=== PATIENT | female | born 1955 | race Caucasian/White ===

== ENCOUNTER 2017-11-02 17:47 | Emergency (ER) | payer OTHER ==
[2017-11-02] MEDS ORDERED: TRAMADOL HCL 50 MG TABLET PO ONE (19:39)
[2017-11-02] MEDS ORDERED: ONDANSETRON 4 MG TAB.RAPDIS PO ONE (19:39)
--- NOTE | 2017-11-02 19:39 | ER Document Report ---
ED Medical Screen (RME) - General Chief Complaint: Nausea/Vomiting Stated Complaint: BODY PAIN Time Seen by Provider: 11/02/17 19:38 Notes: Patient reports worsening 3 days of generalized body aches as well as upper respiratory symptoms. Condition she has had a severe migraine. She is also had severe nausea. - Related Data Allergies/Adverse Reactions: Sulfa (Sulfonamide Antibiotics) Allergy (Verified 11/02/17 17:51) Past Medical History - Past Medical History Cardiac Medical History: Reports: Hx Hypercholesterolemia, Hx Hypertension GI Medical History: Reports: Hx Gastroesophageal Reflux Disease Psychiatric Medical History: Reports: Hx Depression Past Surgical History: Reports: Hx Abdominal Surgery - spleenectomy, Hx Hysterectomy - Immunizations Hx Diphtheria, Pertussis, Tetanus Vaccination: - unknown Physical Exam - Vital signs Vitals: Temp Pulse Resp BP Pulse Ox 97.7 F 86 20 120/79 96 11/02/17 18:15 11/02/17 18:15 11/02/17 18:15 11/02/17 18:15 11/02/17 18:15 Course - Vital Signs Vital signs: Temp Pulse Resp BP Pulse Ox 97.7 F 86 20 120/79 96 11/02/17 18:15 11/02/17 18:15 11/02/17 18:15 11/02/17 18:15 11/02/17 18:15
[2017-11-02 19:42] LABS: APPEARANCE,URINE CLEAR; BILIRUBIN,URINE NEGATIVE (NEGATIVE); COLOR,URINE STRAW; GLUCOSE, URINE NEGATIVE (NEGATIVE); KETONES,URINE NEGATIVE (NEGATIVE); LEUKOCYTE ESTERASE,URINE NEGATIVE (NEGATIVE); NITRITE,URINE NEGATIVE (NEGATIVE); PROTEIN,URINE NEGATIVE (NEGATIVE); URINE SPECIFIC GRAVITY 1.006; UROBILINOGEN,URINE NEGATIVE mg/dL (<2.0)
[2017-11-02 21:33] LABS: ABSOLUTE EOSINOPHILS # (AUTO) 0.2 10^3/uL (0.0-0.6); ABSOLUTE LYMPHOCYTES (AUTO) 2.9 10^3/uL (0.5-4.7); ABSOLUTE MONOCYTES (AUTO) 0.9 10^3/uL (0.1-1.4); ABSOLUTE NEUT (AUTO) 4.3 10^3/uL (1.7-8.2); BASOPHILS % (AUTO) 0.5 % (0-2); EOSINOPHILS % (AUTO) 2.5 % (0-6); HEMATOCRIT 37.7 % (36.0-47.0); HEMOGLOBIN 12.5 g/dL (12.0-15.5); MEAN CORPUSCULAR HEMOGLOBIN 30.6 pg (27.0-33.4); MEAN CORPUSCULAR VOLUME 93 fl (80-97); MONOCYTES % (AUTO) 11.2 % (3-13); PLATELET COUNT 193 10^3/uL (150-450); RED BLOOD COUNT 4.07 10^6/uL (3.72-5.28); SEGMENTED NEUTROPHILS % (AUTO) 50.8 % (42-78); TOTAL CELLS COUNTED % (AUTO) 100 %; WHITE BLOOD COUNT 8.4 10^3/uL (4.0-10.5)
[2017-11-02] MEDS ORDERED: KETOROLAC TROMETHAMINE INJ/PF 30 MG/1 ML SDV IV ONE (21:47)
[2017-11-02] MEDS ORDERED: NORMAL SALINE 1000 ML 500 ML IV ONE (21:47)
[2017-11-02] MEDS ORDERED: ONDANSETRON HCL INJ/PF 4 MG/2 ML SDV IV ONE (21:47)
--- NOTE | 2017-11-02 21:48 | ER Document Report ---
ED General - General Chief Complaint: Nausea/Vomiting Stated Complaint: BODY PAIN Time Seen by Provider: 11/02/17 19:38 Notes: Patient is a 61-year-old female but complains of sick symptoms for the past 3 days, she states that she has had nausea, body aches, she threw up a couple times yesterday, she has had a cough with occasional productive sputum, and she has had no energy. She denies difficulty breathing, she states she only hurts in her chest when she coughs, she has not had any vomiting today although she ate/drank less than usual. 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 - Related Data Allergies/Adverse Reactions: Sulfa (Sulfonamide Antibiotics) Allergy (Verified 11/02/17 17:51) Past Medical History - General Information source: Patient - Social History Smoking Status: Never Smoker Frequency of alcohol use: None Drug Abuse: None Lives with: Family Family History: Reviewed & Not Pertinent Patient has suicidal ideation: No Patient has homicidal ideation: No - Past Medical History Cardiac Medical History: Reports: Hx Hypercholesterolemia, Hx Hypertension Neurological Medical History: Reports: Hx Migraine Renal/ Medical History: Denies: Hx Peritoneal Dialysis GI Medical History: Reports: Hx Gastroesophageal Reflux Disease Psychiatric Medical History: Reports: Hx Depression Past Surgical History: Reports: Hx Abdominal Surgery - spleenectomy, Hx Hysterectomy - Immunizations Hx Diphtheria, Pertussis, Tetanus Vaccination: - unknown Review of Systems - Review of Systems Constitutional: See HPI EENT: See HPI Cardiovascular: No symptoms reported Respiratory: See HPI Gastrointestinal: See HPI Genitourinary: No symptoms reported Female Genitourinary: No symptoms reported Musculoskeletal: No symptoms reported Skin: No symptoms reported Hematologic/Lymphatic: No symptoms reported Neurological/Psychological: No symptoms reported Physical Exam - Vital signs Vitals: Temp Pulse Resp BP Pulse Ox 97.7 F 86 20 120/79 96 11/02/17 18:15 11/02/17 18:15 11/02/17 18:15 11/02/17 18:15 11/02/17 18:15 Interpretation: Normal - General General appearance: Appears well, Alert In distress: None - HEENT Head: Normocephalic, Atraumatic Eyes: Normal Extraocular movements intact: Yes Eyelashes: Normal Pupils: PERRL Sinus: Normal Nasal: Normal Mouth/Lips: Normal Mucous membranes: Dry Pharynx: Normal Neck: Normal. No: Meningismus - Respiratory Respiratory status: No respiratory distress. No: Labored, Retractions, Tachypnea Chest status: Nontender Breath sounds: Nonproductive cough - Intermittent congested sounding cough Chest palpation: Normal - Cardiovascular Rhythm: Regular. No: Tachycardia Heart sounds: Normal auscultation, S1 appreciated, S2 appreciated Murmur: No - Abdominal Inspection: Normal Distension: No distension Bowel sounds: Normal Tenderness: Nontender. No: Tender, Guarding, Rebound - Back Back: Normal, Nontender. No: Tender - Extremities General upper extremity: Normal inspection, Nontender, Normal strength, Normal temperature General lower extremity: Normal inspection, Nontender, Normal strength, Normal temperature. No: Edema - Neurological Neuro grossly intact: Yes Cognition: Normal Orientation: AAOx4 [place] Coma Scale Eye Opening: Spontaneous [place] Coma Scale Verbal: Oriented [place] Coma Scale Motor: Obeys Commands Violeta Coma Scale Total: 15 Speech: Normal Motor strength normal: LUE, RUE, LLE, RLE Sensory: Normal - Psychological Associated symptoms: Normal affect, Normal mood - Skin Skin Temperature: Warm Skin Moisture: Dry Skin Color: Normal Course - Re-evaluation Re-evalutation: Chest x-ray unremarkable. EKG unremarkable. CBC, chemistry shows mild hypokalemia but is otherwise unremarkable. Vital signs are unremarkable. Patient's abdomen is soft, lungs are clear, she is well-appearing. Very generalized complaints. Suspect this is viral based on her cough, nausea, body aches. Patient was given tramadol and Zofran in triage, she states she feels improved afterwards, given slightly more Zofran, IV fluids, and Toradol, after that she states she feels amazing. She is asking to be discharged with Toradol as a prescription. Because of patient's splenectomy decision was made to cover her for potential underlying developing pneumonia because of her productive cough and chills. Patient was prescribed Toradol with precautions in use. Discussed close follow- up and return precautions in detail. Patient states satisfaction and agreement. Stable at time of discharge. - Vital Signs Vital signs: Temp Pulse Resp BP Pulse Ox 97.8 F 68 14 113/69 99 11/02/17 23:36 11/02/17 23:36 11/02/17 23:36 11/02/17 23:36 11/02/17 23:36 - Laboratory Result Diagrams: 11/02/17 21:21 11/02/17 21:21 Laboratory results interpreted by me: 11/02/17 11/02/17 11/02/17 18:16 21:21 21:21 RDW 15.0 H Potassium 3.5 L Creatine Kinase 21 L Urine Blood SMALL H Discharge - Discharge Clinical Impression: Cough, Body aches, Nausea, Chills Condition: Stable Disposition: HOME, SELF-CARE Additional Instructions: Your workup does not show any concerning abnormalities, you most likely have a virus causing your symptoms. You have been provided with Zofran for nausea, you have been provided with Toradol to take as needed for body aches (make sure you stay hydrated if you are taking this to avoid kidney irritation). Take doxycycline as prescribed as covers to prevent developing pneumonia as we discussed. Follow-up with primary care. Return if you worsen including returned vomiting, difficulty breathing, chest pain, abdominal pain, passing out, or any other concerning or worsening symptoms. Prescriptions: Ketorolac Tromethamine [Toradol 10 mg Tablet] 10 mg PO Q8HP PRN #12 tablet PRN Reason: Doxycycline Hyclate 100 mg PO BID #14 capsule Ondansetron [Zofran Odt 4 mg Tablet] 1 - 2 tab PO Q4H PRN #15 tab.rapdis PRN Reason: For Nausea/Vomiting Referrals: OBDULIO GRIFFIN MD [Primary Care Provider] - Follow up in 3-5 days
[2017-11-02 21:51] LABS: ALANINE AMINOTRANSFERASE 25 U/L (9-52); ALKALINE PHOSPHATASE 100 U/L (38-126); ANION GAP 9 (5-19); ASPARTATE AMINO TRANSFERASE 26 U/L (14-36); BILIRUBIN,DIRECT 0.2 mg/dL (0.0-0.4); BILIRUBIN,TOTAL 0.2 mg/dL (0.2-1.3); BLOOD UREA NITROGEN 14 mg/dL (7-20); CALCIUM 9.2 mg/dL (8.4-10.2); CARBON DIOXIDE 29 mmol/L (22-30); CHLORIDE 103 mmol/L (98-107); CREATINE KINASE 21 U/L (30-135); GLUCOSE 92 mg/dL (75-110); POTASSIUM 3.5 mmol/L (3.6-5.0); SODIUM 140.5 mmol/L (137-145); TOTAL PROTEIN 7.4 g/dL (6.3-8.2)
--- NOTE | 2017-11-02 22:21 | RADIOLOGY REPORT (SQ) ---
EXAM DESCRIPTION: CHEST PA/LAT COMPLETED DATE/TIME: 11/02/2017 10:02 pm REASON FOR STUDY: productive cough, chills COMPARISON: 04/29/2010 EXAM PARAMETERS: NUMBER OF VIEWS: two views TECHNIQUE: Digital Frontal and Lateral radiographic views of the chest acquired. RADIATION DOSE: NA LIMITATIONS: none FINDINGS: LUNGS AND PLEURA: No opacities, masses or pneumothorax. No pleural effusion. MEDIASTINUM AND HILAR STRUCTURES: No masses or contour abnormalities. HEART AND VASCULAR STRUCTURES: Heart normal size. No evidence for failure. BONES: Scoliosis. HARDWARE: None in the chest. OTHER: No other significant finding. IMPRESSION: Scoliosis. There is no acute cardiopulmonary disease. TECHNICAL DOCUMENTATION: JOB ID: [id number] [employer]- All Rights Reserved Reading location - IP/workstation name: [email or web address]
[2017-11-02] MEDS ORDERED: ONDANSETRON ODT 4 MG TAB (6 TAB/ER DISP) PO PRN (22:43)
[2017-11-02 23:40] VITALS: BP 113/69
== END 2017-11-02 23:40 | disposition home or self-care (01) ==
LOC: ER 17:47
DX: R05 Cough (principal); M79.1 Myalgia; R11.2 Nausea with vomiting, unspecified; R68.83 Chills (without fever); R07.9 Chest pain, unspecified; M54.9 Dorsalgia, unspecified; G89.29 Other chronic pain; I10 Essential (primary) hypertension; E11.9 Type 2 diabetes mellitus without complications; Z79.84 Long term (current) use of oral hypoglycemic drugs; E87.6 Hypokalemia
CPT/HCPCS: 99283; 96374; 96375; 36415; 82550; 85025; 80053; 81001; 71046; S0119; J1885; J2405; J7030

== ENCOUNTER 2018-03-27 08:23 | Emergency (ER) | payer OTHER ==
[2018-03-27 08:33] VITALS: BP 107/73
[2018-03-27] MEDS ORDERED: CEPHALEXIN 500 MG CAPSULE PO ONE (09:15)
[2018-03-27] MEDS ORDERED: PSEUDOEPHEDRINE HCL 30 MG TABLET PO ONE (09:15)
--- NOTE | 2018-03-27 09:21 | ER Document Report ---
HPI - HPI Patient complains to provider of: Cold symptoms Onset: Yesterday Onset/Duration: Gradual Quality of pain: Achy Pain Level: 3 Context: Patient presents complaining of recent strep throat exposure. Patient complains of cough congestion that started yesterday as well as an insect bite to the right thigh that is starting to look infected. Patient denies any purulent drainage. Patient denies any history of MRSA. Patient without any fever. Associated Symptoms: Nonproductive cough, Rhinnorhea. denies: Earache, Fever, Nausea, Vomiting, Sore throat Exacerbated by: Denies Relieved by: Denies Similar symptoms previously: Yes Recently seen / treated by doctor: No - ROS ROS below otherwise negative: Yes Systems Reviewed and Negative: Yes All other systems reviewed and negative - CONSTITUTIONAL Constitutional: DENIES: Fever - EENT EENT: REPORTS: Nasal Drainage-Clear, Congestion. DENIES: Sore Throat - CARDIOVASCULAR Cardiovascular: DENIES: Chest pain - RESPIRATORY Respiratory: REPORTS: Coughing. DENIES: Trouble Breathing - REPRODUCTIVE Reproductive: DENIES: : - MUSCULOSKELETAL Musculoskeletal: REPORTS: Extremity pain - DERM Skin Color: Erythema Skin Problems: None Past Medical History - General Information source: Patient - Social History Smoking Status: Current Every Day Smoker Smoking Education Provided: Yes Frequency of alcohol use: None Drug Abuse: None Occupation: None Lives with: Family Family History: Reviewed & Not Pertinent - Past Medical History Cardiac Medical History: Reports: Hx Hypercholesterolemia, Hx Hypertension Neurological Medical History: Reports: Hx Migraine Endocrine Medical History: Reports: Hx Diabetes Mellitus Type 2 Renal/ Medical History: Denies: Hx Peritoneal Dialysis GI Medical History: Reports: Hx Gastroesophageal Reflux Disease Psychiatric Medical History: Reports: Hx Depression Past Surgical History: Reports: Hx Abdominal Surgery - spleenectomy, Hx Hysterectomy - Immunizations Hx Diphtheria, Pertussis, Tetanus Vaccination: - unknown Vertical Provider Document - CONSTITUTIONAL Agree With Documented VS: Yes Exam Limitations: No Limitations General Appearance: WD/WN, No Apparent Distress - INFECTION CONTROL TRAVEL OUTSIDE OF THE [place] IN LAST 30 DAYS: No - HEENT HEENT: Atraumatic, Normocephalic, Pharyngeal Erythema, Tympanic Membrane Red, Tympanic Membrane Bulging. negative: Pharyngeal Exudate, Pharyngeal Tenderness - NECK Neck: Normal Inspection, Supple. negative: Lymphadenopathy-Left, Lymphadenopathy-Right - RESPIRATORY Respiratory: No Respiratory Distress, Rhonchi - CARDIOVASCULAR Cardiovascular: Regular Rate, Regular Rhythm - BACK Back: Normal Inspection - MUSCULOSKELETAL/EXTREMETIES Musculoskeletal/Extremeties: MAEW - NEURO Level of Consciousness: Awake, Alert, Appropriate Motor/Sensory: No Motor Deficit - DERM Integumentary: Warm, Dry, No Rash Course - Re-evaluation Re-evalutation: 03/27/18 09:17 Respirations unlabored, no concern for pneumonia. 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 03/27/18 09:18 Patient will be placed on antibiotic to cover for cellulitis to right leg. - Vital Signs Vital signs: Temp Pulse Resp BP Pulse Ox 98.2 F 87 16 107/73 97 03/27/18 08:31 03/27/18 08:31 03/27/18 08:31 03/27/18 08:31 03/27/18 08:31 Discharge - Discharge Clinical Impression: Strep throat exposure Upper respiratory infection Qualifiers: URI type: unspecified URI Qualified Code(s): J06.9 - Acute upper respiratory infection, unspecified Cellulitis Qualifiers: Site of cellulitis: extremity Site of cellulitis of extremity: lower extremity Laterality: right Qualified Code(s): L03.115 - Cellulitis of right lower limb Condition: Stable Disposition: HOME, SELF-CARE Instructions: Cellulitis ([facility]), Cephalexin ([facility]), Upper Respiratory Illness ( [facility]) Additional Instructions: Return immediately for any new or worsening symptoms Followup with your primary care provider, call tomorrow to make a followup appointment Prescriptions: Cephalexin Monohydrate [Keflex 500 mg Capsule] 500 mg PO Q6H 7 Days capsule Fluticasone Propionate [Flonase Nasal [place] 50 Mcg/[place] 16 gm] 2 spray NASL DAILY #1 bottle Guaifenesin/Pseudoephedrne HCl [Mucinex D ER Tablet] 1 each PO Q12 PRN #12 tab.er.12h PRN Reason: Forms: Smoking Cessation Education Referrals: OBDULIO GRIFFIN MD [COMMUNITY BASED STAFF] - Follow up as needed
== END 2018-03-27 09:34 | disposition home or self-care (01) ==
LOC: ER 08:23
DX: J06.9 Acute upper respiratory infection, unspecified (principal); Z20.818 Contact with and (suspected) exposure to other bacterial communicable diseases; S70.361A Insect bite (nonvenomous), right thigh, initial encounter; L03.115 Cellulitis of right lower limb; W57.XXXA Bitten or stung by nonvenomous insect and other nonvenomous arthropods, initial encounter; R05 Cough; J34.89 Other specified disorders of nose and nasal sinuses; F17.200 Nicotine dependence, unspecified, uncomplicated; I10 Essential (primary) hypertension; E11.9 Type 2 diabetes mellitus without complications
CPT/HCPCS: 99283

== ENCOUNTER 2018-09-06 09:19 | Emergency (ER) | payer OTHER ==
[2018-09-06] MEDS ORDERED: IPRATROPIUM/ALBUTEROL 0.5-2.5 MG/3 ML AMPUL NEB ONE (09:48)
[2018-09-06] MEDS ORDERED: PREDNISONE 20 MG TABLET PO ONE (09:48)
[2018-09-06] MEDS ORDERED: ONDANSETRON 4 MG TAB.RAPDIS PO ONE (09:50)
--- NOTE | 2018-09-06 09:54 | ER Document Report ---
ED Flu Like - General Chief Complaint: Flu Symptoms Stated Complaint: COLD SYMPTOMS Time Seen by Provider: 09/06/18 09:33 Mode of Arrival: Ambulatory Information source: Patient, [facility] Records Notes: 62-year-old female patient with chronic sinus problems and frequently on antibiotics comes emergency room with a 5-day history of body aches, headaches, vomiting, cough. She states the cough is productive of a thick mucus but she has not looked at it. She also is blowing her nose quite a lot but she is not looked at any of that. She did finish a course of Augmentin about a week ago by history. She states she stopped smoking 2 weeks ago. She did not get a flu shot this year. TRAVEL OUTSIDE OF THE [place] IN LAST 30 DAYS: No - Related Data Allergies/Adverse Reactions: Sulfa (Sulfonamide Antibiotics) Allergy (Verified 09/06/18 09:20) Past Medical History - General Information source: Patient, [facility] Records - Social History Smoking Status: Former Smoker Cigarette use (# per day): No - Quit 2 weeks ago Chew tobacco use (# tins/day): No Smoking Education Provided: No Frequency of alcohol use: None Drug Abuse: None Occupation: Unemployed Lives with: Family Family History: Reviewed & Not Pertinent Patient has suicidal ideation: No Patient has homicidal ideation: No - Past Medical History Cardiac Medical History: Reports: Hx Hypercholesterolemia, Hx Hypertension Neurological Medical History: Reports: Hx Migraine GI Medical History: Reports: Hx Gastroesophageal Reflux Disease Psychiatric Medical History: Reports: Hx Depression Past Surgical History: Reports: Hx Abdominal Surgery - spleenectomy, Hx Hysterectomy - Immunizations Hx Diphtheria, Pertussis, Tetanus Vaccination: - unknown Review of Systems - Review of Systems Constitutional: Fever, Malaise EENT: Nose congestion, Nose discharge, Sinus pressure, Sinus discharge Cardiovascular: No symptoms reported Respiratory: Cough, Short of breath, Sputum, Wheezing Gastrointestinal: Nausea Genitourinary: No symptoms reported Female Genitourinary: Post menopausal Musculoskeletal: No symptoms reported Skin: No symptoms reported Hematologic/Lymphatic: No symptoms reported Neurological/Psychological: No symptoms reported Physical Exam - Vital signs Vitals: Temp Pulse Resp BP Pulse Ox 98.0 F 88 24 H 123/75 91 L 09/06/18 09:24 09/06/18 09:24 09/06/18 09:24 09/06/18 09:24 09/06/18 09:24 Interpretation: Hypoxic, Tachypneic - Notes Notes: PHYSICAL EXAMINATION: GENERAL: Well-appearing, well-nourished and in no acute distress. HEAD: Atraumatic, normocephalic. EYES: Pupils equal round and reactive to light, extraocular movements intact, sclera anicteric, conjunctiva are normal. ENT: Nasal sinus congestion. Maxillary sinus regions are both very tender to palpate. Some frontal sinus percussion tenderness, patient states is much better than it was last week. NECK: Normal range of motion, supple without lymphadenopathy LUNGS: Inspiratory wheezes and expiratory rhonchi with forced cough. HEART: Regular rate and rhythm without murmurs ABDOMEN: Soft, nontender, normoactive bowel sounds. No guarding, no rebound. No masses appreciated. EXTREMITIES: Normal range of motion, no pitting or edema. No cyanosis. NEUROLOGICAL: Cranial nerves grossly intact. Normal speech, normal gait. Normal sensory, motor, and reflex exams. PSYCH: Normal mood, normal affect. SKIN: Warm, Dry, normal turgor, no rashes or lesions noted. Course - Re-evaluation Re-evalutation: 09/06/18 12:47 Patient is feeling much better at this time, she states her head congestion is about the same but she is not coughing nearly as much and she is able to rest comfortably. - Vital Signs Vital signs: Temp Pulse Resp BP Pulse Ox 98.0 F 88 16 123/75 91 L 09/06/18 09:24 09/06/18 09:24 09/06/18 09:33 09/06/18 09:24 09/06/18 09:24 - Laboratory Result Diagrams: 09/06/18 10:05 09/06/18 10:05 Laboratory results interpreted by me: 09/06/18 09/06/18 10:05 10:05 WBC 11.6 H RDW 15.5 H Absolute Neutrophils 8.8 H Glucose 122 H Alkaline Phosphatase 129 H Discharge - Discharge Clinical Impression: Viral upper respiratory tract infection with cough, Bronchitis with bron chospasm Sinusitis, acute Qualifiers: Sinusitis location: maxillary Recurrence: not specified as recurrent Qualified Code(s): J01.00 - Acute maxillary sinusitis, unspecified Condition: Stable Disposition: HOME, SELF-CARE Additional Instructions: Bronchitis with Bronchospasm (Wheezing) You have bronchitis with bronchospasm (wheezing). Sometimes people develop wheezing with a chest cold. This occurs either because of an underlying tendency toward asthma or because the virus itself irritates the bronchial tube s. This irritation causes cough, shortness of breath, and wheezing. Emergency treatment of bronchospasm may include adrenaline shots or bronchodilator aerosol. You may feel lightheaded and have a rapid pulse for an hour or two. Rest and get plenty of fluids. At home, we'll treat you with a bronchodilator inhaler. Corticosteroids may be required for some patients. Until you recover, avoid chemical fumes, dusts, pollens, and exercising in very cold or dry air. If you smoke, stop now! Most cases of bronchitis get better without antibiotics. We prescribe antibiotics when we believe bacteria are damaging your airways, or if there's high risk the bronchitis will worsen into pneumonia. Increase your fluid intake. A cool mist humidifier may make your lungs more comfortable. An expectorant (cough medicine that loosens phlegm) can help. Repeated episodes of bronchitis and bronchospasm may result in lung damage -- for example, chronic bronchitis, recurrent pneumonias, or emphysema. If you develop a fever, increased wheezing, chest pain, or severe shortness of breath, you should contact the doctor immediately. Sinusitis You have sinusitis, an infection of the sinus cavities of the face. The sinuses are air-filled chambers which open into the inside of the nose. Bacteria and pus fill a sinus, causing pain, drainage, and fever. Sinusitis is treated with antibiotics. Often, expectorants (to thin the sinus mucous) or decongestants (to reduce swelling) are prescribed as well. Healing requires seven to 10 days. Avoid chemical fumes, pollens, dusts, and smoke (especially cigarette smoke). Keep the air humidified in your bedroom and work area and take plenty of liquids by mouth. This condition can be serious if the infection spreads. If your symptoms worsen, or if you develop severe headache, high fever, stiff neck, or a rash, you must call the doctor or return for re-evaluation. Take medications as prescribed. Start the prednisone tomorrow--you have had today's dose in the emergency room. Drink plenty of fluids. Try something like Delsym DM for additional cough control. Take Tylenol and ibuprofen for fever and body aches. Get plenty of rest and plenty of sleep. Follow-up with your primary care provider if not improving. RETURN TO THE EMERGENCY ROOM IF ANY NEW OR WORSENING SYMPTOMS. Prescriptions: Albuterol Sulfate [Proair Hfa Inhalation Aerosol 8.5 gm Mdi] 2 puff IH ASDIR PRN #1 mdi PRN Reason: Benzonatate [Tessalon Perles 100 mg Capsule] 100 mg PO ASDIR PRN #30 capsule PRN Reason: Doxycycline Hyclate 100 mg PO BID #20 tablet. Prednisone [Deltasone 10 mg Tablet] 10 mg PO ASDIR PRN #21 tablet PRN Reason:
[2018-09-06] MEDS ORDERED: BENZONATATE 100 MG CAPSULE PO ONE (10:13)
[2018-09-06 10:24] LABS: ABSOLUTE EOSINOPHILS # (AUTO) 0.1 10^3/uL (0.0-0.6); ABSOLUTE LYMPHOCYTES (AUTO) 1.7 10^3/uL (0.5-4.7); ABSOLUTE NEUT (AUTO) 8.8 10^3/uL (1.7-8.2); BASOPHILS % (AUTO) 0.3 % (0-2); EOSINOPHILS % (AUTO) 0.4 % (0-6); HEMATOCRIT 36.9 % (36.0-47.0); HEMOGLOBIN 12.4 g/dL (12.0-15.5); LYMPHOCYTES % (AUTO) 14.4 % (13-45); MEAN CORPUSCULAR HEMOGLOBIN 31.2 pg (27.0-33.4); MEAN CORPUSCULAR HGB CONC 33.6 g/dL (32.0-36.0); MEAN CORPUSCULAR VOLUME 93 fl (80-97); MONOCYTES % (AUTO) 8.9 % (3-13); PLATELET COUNT 242 10^3/uL (150-450); RED BLOOD COUNT 3.96 10^6/uL (3.72-5.28); RED CELL DISTRIBUTION WIDTH 15.5 % (11.5-14.0); TOTAL CELLS COUNTED % (AUTO) 100 %; WHITE BLOOD COUNT 11.6 10^3/uL (4.0-10.5)
[2018-09-06] MEDS ORDERED: LIDOCAINE 1% INJ-PF (10 MG/ML) 30 ML SDV INJ ONE (10:43)
[2018-09-06] MEDS ORDERED: ALBUTEROL SULFATE 0.083% NEB 2.5 MG/3 ML AMPUL NEB ONE ×2 (10:43→12:20)
[2018-09-06 10:44] LABS: ALANINE AMINOTRANSFERASE 23 U/L (9-52); ALBUMIN 3.6 g/dL (3.5-5.0); ALKALINE PHOSPHATASE 129 U/L (38-126); ANION GAP 11 (5-19); ASPARTATE AMINO TRANSFERASE 29 U/L (14-36); BILIRUBIN,DIRECT 0.3 mg/dL (0.0-0.4); BILIRUBIN,TOTAL 0.3 mg/dL (0.2-1.3); BLOOD UREA NITROGEN 10 mg/dL (7-20); CALCIUM 8.9 mg/dL (8.4-10.2); CARBON DIOXIDE 27 mmol/L (22-30); CHLORIDE 106 mmol/L (98-107); GLUCOSE 122 mg/dL (75-110); POTASSIUM 3.6 mmol/L (3.6-5.0); SODIUM 144.2 mmol/L (137-145); TOTAL PROTEIN 6.7 g/dL (6.3-8.2)
[2018-09-06 13:28] VITALS: BP 134/72
== END 2018-09-06 13:19 | disposition home or self-care (01) ==
LOC: ER 09:19
DX: J01.00 Acute maxillary sinusitis, unspecified (principal); B97.89 Other viral agents as the cause of diseases classified elsewhere; J40 Bronchitis, not specified as acute or chronic; J98.01 Acute bronchospasm; R51 Headache; R05 Cough; R06.02 Shortness of breath; R06.2 Wheezing; R53.83 Other fatigue; R09.81 Nasal congestion; J34.89 Other specified disorders of nose and nasal sinuses; R11.2 Nausea with vomiting, unspecified; I10 Essential (primary) hypertension; Z87.891 Personal history of nicotine dependence; Z88.2 Allergy status to sulfonamides
CPT/HCPCS: 94640 ×2; 99283; 36415; 87070; 87205; 85025; 80053; S0119; J3490; J7512; J7620

== ENCOUNTER 2019-03-13 11:38 | Emergency (ER) | payer OTHER ==
[2019-03-13] MEDS ORDERED: IBUPROFEN 800 MG TABLET PO ONE (12:33)
--- NOTE | 2019-03-13 12:37 | ER Document Report ---
ED Medical Screen (RME) - General Chief Complaint: Finger Injury Stated Complaint: FINGER/HAND PAIN Time Seen by Provider: 03/13/19 12:26 Mode of Arrival: Ambulatory Information source: Patient Notes: Patient presents the emergency department with a pustule from anterior fourth finger from PIP to right under her fingernail with erythema spreading across her dorsal hand. Denies fever vomiting diarrhea. Patient is a diabetic. Reports possibly happened when she had a hangnail. Denies trauma. C/O pain when flexing her finger. + Cap refill I have greeted and performed a rapid initial assessment of this patient. A comprehensive ED assessment and evaluation of the patient, analysis of test results and completion of the medical decision making process will be conducted by additional ED providers. Dictation of this chart was performed using voice recognition software; therefore, there may be some unintended grammatical errors. TRAVEL OUTSIDE OF THE [place] IN LAST 30 DAYS: No - Related Data Allergies/Adverse Reactions: Sulfa (Sulfonamide Antibiotics) Allergy (Verified 03/13/19 11:38) Past Medical History - Past Medical History Cardiac Medical History: Reports: Hx Hypercholesterolemia, Hx Hypertension Neurological Medical History: Reports: Hx Migraine Endocrine Medical History: Reports: Hx Diabetes Mellitus Type 2 Renal/ Medical History: Denies: Hx Peritoneal Dialysis GI Medical History: Reports: Hx Gastroesophageal Reflux Disease Psychiatric Medical History: Reports: Hx Depression Past Surgical History: Reports: Hx Abdominal Surgery - spleenectomy, Hx Hysterectomy - Immunizations Hx Diphtheria, Pertussis, Tetanus Vaccination: - unknown Physical Exam - Vital signs Vitals: Temp Pulse Resp BP Pulse Ox 98.1 F 85 17 110/74 94 03/13/19 11:42 03/13/19 11:42 03/13/19 11:42 03/13/19 11:42 03/13/19 11:42 Course - Vital Signs Vital signs: Temp Pulse Resp BP Pulse Ox 98.1 F 85 17 110/74 94 03/13/19 11:42 03/13/19 11:42 03/13/19 11:42 03/13/19 11:42 03/13/19 11:42
[2019-03-13 13:21] LABS: ALBUMIN 4.3 g/dL (3.5-5.0); ALKALINE PHOSPHATASE 126 U/L (38-126); ANION GAP 10 (5-19); ASPARTATE AMINO TRANSFERASE 29 U/L (14-36); BILIRUBIN,DIRECT 0.4 mg/dL (0.0-0.4); BILIRUBIN,TOTAL 0.4 mg/dL (0.2-1.3); BLOOD UREA NITROGEN 17 mg/dL (7-20); CALCIUM 9.4 mg/dL (8.4-10.2); CARBON DIOXIDE 31 mmol/L (22-30); CHLORIDE 103 mmol/L (98-107); POTASSIUM 3.5 mmol/L (3.6-5.0); TOTAL PROTEIN 7.9 g/dL (6.3-8.2)
[2019-03-13 13:23] LABS: ABSOLUTE BASOPHILS # (AUTO) 0.1 10^3/uL (0.0-0.2); ABSOLUTE EOSINOPHILS # (AUTO) 0.2 10^3/uL (0.0-0.6); ABSOLUTE LYMPHOCYTES (AUTO) 2.3 10^3/uL (0.5-4.7); ABSOLUTE NEUT (AUTO) 6.6 10^3/uL (1.7-8.2); BASOPHILS % (AUTO) 0.9 % (0-2); EOSINOPHILS % (AUTO) 1.9 % (0-6); HEMATOCRIT 38.5 % (36.0-47.0); HEMOGLOBIN 12.9 g/dL (12.0-15.5); LYMPHOCYTES % (AUTO) 22.9 % (13-45); MEAN CORPUSCULAR HEMOGLOBIN 31.2 pg (27.0-33.4); MEAN CORPUSCULAR HGB CONC 33.4 g/dL (32.0-36.0); MEAN CORPUSCULAR VOLUME 93 fl (80-97); MONOCYTES % (AUTO) 9.5 % (3-13); PLATELET COUNT 369 10^3/uL (150-450); RED BLOOD COUNT 4.12 10^6/uL (3.72-5.28); RED CELL DISTRIBUTION WIDTH 14.6 % (11.5-14.0); SEGMENTED NEUTROPHILS % (AUTO) 64.8 % (42-78); TOTAL CELLS COUNTED % (AUTO) 100 %; WHITE BLOOD COUNT 10.1 10^3/uL (4.0-10.5)
--- NOTE | 2019-03-13 13:24 | RADIOLOGY REPORT (SQ) ---
EXAM DESCRIPTION: HAND LEFT 3 VIEWS COMPLETED DATE/TIME: 03/13/2019 12:59 pm REASON FOR STUDY: 4th finger infect. radiating to hand COMPARISON: None. EXAM PARAMETERS: NUMBER OF VIEWS: Three views. TECHNIQUE: AP, lateral and oblique radiographic images acquired of the left hand. LIMITATIONS: None. FINDINGS: MINERALIZATION: Normal. BONES: No acute fracture or dislocation. No worrisome bone lesions. JOINTS: No effusion. SOFT TISSUES: 4th digit soft tissue swelling. No radiopaque foreign body. OTHER: No other significant finding. IMPRESSION: No acute osseous finding.No radiopaque foreign body. TECHNICAL DOCUMENTATION: JOB ID: [id number] [id number] [employer]- All Rights Reserved Reading location - IP/workstation name: [email or web address]
[2019-03-13 13:26] LABS: GLUCOSE 62 mg/dL (75-110)
[2019-03-13] MEDS ORDERED: LIDOCAINE 1% INJ-PF (10 MG/ML) 30 ML SDV INJ ONE (15:24)
[2019-03-13] MEDS ORDERED: LIDOCAINE 1% INJ-PF (10 MG/ML) 30 ML SDV ONE (16:38)
[2019-03-13] MEDS ORDERED: DOXYCYCLINE HYCLATE 100 MG TABLET PO ONE (17:42)
[2019-03-13] MEDS ORDERED: CEPHALEXIN 500 MG CAPSULE PO ONE (17:42)
--- NOTE | 2019-03-13 17:47 | ER Document Report ---
ED General - General Chief Complaint: Finger Injury Stated Complaint: FINGER/HAND PAIN Time Seen by Provider: 03/13/19 12:26 Primary Care Provider: MACY,SHANNEN [Primary Care Provider] - Follow up as needed Mode of Arrival: Ambulatory TRAVEL OUTSIDE OF THE [place] IN LAST 30 DAYS: No - HPI Notes: 63-year-old female to the emergency department with progressively worsening left ring finger infection for the past several days. She states that she first noticed an infection to her nailbed of the left ring finger and it has progressively gotten worse. She states that she got concerned today when she noticed redness coming down the finger and onto the back of her hand. She states that it does hurt to move the finger. Or if she may have cut herself or if she had a hangnail. She does not bite her fingernails. She is diabetic. Her diabetes is controlled by oral medications. She denies any fevers, chills, chest pain, shortness of breath, blunt trauma, falls. - Related Data Allergies/Adverse Reactions: Sulfa (Sulfonamide Antibiotics) Allergy (Verified 03/13/19 11:38) Past Medical History - General Information source: Patient - Social History Smoking Status: Current Every Day Smoker Frequency of alcohol use: None Drug Abuse: None Family History: Reviewed & Not Pertinent Patient has suicidal ideation: No Patient has homicidal ideation: No - Past Medical History Cardiac Medical History: Reports: Hx Hypercholesterolemia, Hx Hypertension Neurological Medical History: Reports: Hx Migraine Endocrine Medical History: Reports: Hx Diabetes Mellitus Type 2 Renal/ Medical History: Denies: Hx Peritoneal Dialysis GI Medical History: Reports: Hx Gastroesophageal Reflux Disease Psychiatric Medical History: Reports: Hx Depression Past Surgical History: Reports: Hx Abdominal Surgery - spleenectomy, Hx Hysterectomy - Immunizations Hx Diphtheria, Pertussis, Tetanus Vaccination: - unknown Review of Systems - Review of Systems Constitutional: denies: Chills, Diaphoresis, Fever EENT: No symptoms reported Cardiovascular: denies: Chest pain, Palpitations, Dizziness, Lightheaded Respiratory: denies: Cough, Short of breath Gastrointestinal: denies: Abdominal pain, Diarrhea, Nausea, Vomiting Musculoskeletal: See HPI - Ring finger pain and swelling, Joint pain, Joint swelling Skin: Change in color - Redness and presumed purulence to the left ring finger around the nail fold and down the finger Hematologic/Lymphatic: No symptoms reported Neurological/Psychological: No symptoms reported -: Yes All other systems reviewed and negative Physical Exam - Vital signs Vitals: Temp Pulse Resp BP Pulse Ox 98.1 F 85 17 110/74 94 03/13/19 11:42 03/13/19 11:42 03/13/19 11:42 03/13/19 11:42 03/13/19 11:42 Interpretation: Normal - General General appearance: Appears well, Alert - HEENT Head: Normocephalic, Atraumatic Eyes: Normal Pupils: PERRL - Respiratory Respiratory status: No respiratory distress Chest status: Nontender Breath sounds: Normal Chest palpation: Normal - Cardiovascular Rhythm: Regular Heart sounds: Normal auscultation Murmur: No - Abdominal Inspection: Normal Distension: No distension Bowel sounds: Normal Tenderness: Nontender Organomegaly: No organomegaly - Extremities Elbow: Nontender, Tender Forearm: Nontender, Tender Wrist: Nontender, Tender Hand: Tender, Swelling, Other - To the dorsal aspect of the left ring finger around the nail and coming proximally to the PIP joint there is evidence of a paronychia. There appears to be purulence underneath all of the skin. There is no active drainage. Around the area of the paronychia there is erythema that she drinks down the back of the ring finger and onto the back of the left hand. Patient does have edema to the back of the left ring finger. The finger is not circumferentially edematous, she is not stuck in flexion, or tenderness to palpation over the flexor tendon sheath. It has 5 out of 5 strength in all fingers against resistance in flexion at DIP and PIP and extension. Cap refill is less than 2 seconds. - Neurological Neuro grossly intact: Yes Cognition: Normal Orientation: AAOx4 [place] Coma Scale Eye Opening: Spontaneous Violeta Coma Scale Verbal: Oriented [place] Coma Scale Motor: Obeys Commands Violeta Coma Scale Total: 15 Speech: Normal Motor strength normal: LUE, RUE, LLE, RLE Sensory: Normal - Psychological Associated symptoms: Normal affect, Normal mood - Skin Skin Temperature: Warm Skin Moisture: Dry Skin Color: Normal Course - Re-evaluation Re-evalutation: 03/13/19 Noted sugar on labs. Patient was fed and she is feeling well. She states that she took her glipizide this morning and then has not been since. Does not have any leukocytosis, XR is reassuring with no evidence of osteomyelitis. Her vital signs are well within normal limits. Did attempt I&D of paronychia. Applied a digital block to the finger with good success. Took the edge of the scalpel to the nail fold and attempted to drain there but no drainage came. Made a small 1 cm incision to the top of the finger where purulence seemed most prominent. Manage but evidence that purulence is very thick. The top layer of the skin is very thin just like a blister. Did not completely de-roof the blister. Patient tolerated the procedure well. After procedure soaked patient and saline and hydrogen peroxide. She was then wiped dry, bacitracin applied and Xeroform dressing. She was given oral antibiotics. And I will have her come tomorrow for wound check. Marked her hand where the erythema was and advised for her to return sooner if the erythema goes out of the borders. Impression: Left ring finger with paronychia that has started to spread down the dorsum of the left ring finger. She also has cellulitis that runs onto the back of her left hand. Will start on Doxy and Keflex. Give NSaids for pain. Have her return tomorrow for wound check. Patient agrees with the plan. - Vital Signs Vital signs: Temp Pulse Resp BP Pulse Ox 98.1 F 85 17 110/74 94 03/13/19 11:42 03/13/19 11:42 03/13/19 11:42 03/13/19 11:42 03/13/19 11:42 - Laboratory Result Diagrams: 03/13/19 12:47 03/13/19 12:47 Laboratory results interpreted by me: 03/13/19 03/13/19 12:47 12:47 RDW 14.6 H Potassium 3.5 L Carbon Dioxide 31 H Glucose 62 L - Diagnostic Test Radiology reviewed: Image reviewed, Reports reviewed Procedures - Incision and Drainage Left Dorsal Finger 4th digit Type: Simple Anesthetic type: 1% Lidocaine mL's of anesthetic: 3 Blade size: 11 I&D procedure: Betadine prep applied, Shurclens applied Incision Method: Incision made by scalpel Amount/type of drainage: scant Discharge - Discharge Clinical Impression: Paronychia, Cellulitis of hand, left Condition: Stable Disposition: HOME, SELF-CARE Instructions: Paronychia ([facility]), Cellulitis ([facility]) Additional Instructions: COMPLETE ALL ANTIBIOTICS. RETURN TOMORROW FOR WOUND CHECK. CLEAN DAILY WITH WARM SOAPY WATER. RETURN SOONER IF REDNESS GOES OUT OF THE BORDERS DRAWN ON YOUR HAND. Prescriptions: Cephalexin Monohydrate [Keflex 500 mg Capsule] 500 mg PO Q6H 10 Days #40 capsule Doxycycline Hyclate 100 mg PO BID #20 capsule Naproxen [Naprosyn 375 Mg Tablet] 375 mg PO BID #20 tablet [facility]errals: [facility] [[facility]] - Follow up in 3-5 days
[2019-03-13 18:28] VITALS: BP 111/73
== END 2019-03-13 18:30 | disposition home or self-care (01) ==
LOC: ER 11:38
DX: L03.012 Cellulitis of left finger (principal); F17.200 Nicotine dependence, unspecified, uncomplicated; E78.00 Pure hypercholesterolemia, unspecified; I10 Essential (primary) hypertension; E11.9 Type 2 diabetes mellitus without complications; Z90.710 Acquired absence of both cervix and uterus
CPT/HCPCS: 36415; 80053; 82962; 85025; 99283

== ENCOUNTER 2019-06-15 11:19 | Emergency (ER) | payer OTHER ==
--- NOTE | 2019-06-15 11:37 | ER Document Report ---
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 She is positive for E. coli everywhere at this time. She states they are afraid she is going to get septic because of this fistula. She states she goes to [facility] the [place] and she has been seeing Michelle LarsonBride at [facility] and she sent her over to the emergency room. She states she is having stool vaginal discharge, nauseated no vomiting abdominal abdomen distended and abdominal pain the last 2 weeks I have greeted and performed a rapid initial assessment of this patient. A comprehensive ED assessment and evaluation of the patient, analysis of test results and completion of medical decision making process will be conducted by an additional ED providers. TRAVEL OUTSIDE OF THE [place] IN LAST 30 DAYS: No - Related Data Allergies/Adverse Reactions: Sulfa (Sulfonamide Antibiotics) Allergy (Verified 06/15/19 11:31) Home Medications: lyrica, trazadone, effexor xr, lipitor, omeprazole, flonase, glucotrol Past Medical History - Social History Chew tobacco use (# tins/day): No Frequency of alcohol use: None Drug Abuse: None - Past Medical History Cardiac Medical History: Reports: Hx Hypercholesterolemia, Hx Hypertension Neurological Medical History: Reports: Hx Migraine Endocrine Medical History: Reports: Hx Diabetes Mellitus Type 2 Renal/ Medical History: Denies: Hx Peritoneal Dialysis GI Medical History: Reports: Hx Gastroesophageal Reflux Disease Psychiatric Medical History: Reports: Hx Depression Past Surgical History: Reports: Hx Abdominal Surgery - spleenectomy, Hx Hysterectomy - Immunizations Hx Diphtheria, Pertussis, Tetanus Vaccination: - unknown Physical Exam - Vital signs Vitals: Temp Pulse Resp BP Pulse Ox 97.8 F 90 16 111/84 96 06/15/19 11:25 06/15/19 11:25 06/15/19 11:25 06/15/19 11:25 06/15/19 11:25 Course - Vital Signs Vital signs: Temp Pulse Resp BP Pulse Ox 97.8 F 90 16 111/84 96 06/15/19 11:25 06/15/19 11:25 06/15/19 11:25 06/15/19 11:25 06/15/19 11:25 Doctor's Discharge - Discharge [facility]errals: [facility] [[facility]] - Follow up as needed
[2019-06-15 12:48] LABS: ABSOLUTE BASOPHILS # (AUTO) 0.1 10^3/uL (0.0-0.2); ABSOLUTE EOSINOPHILS # (AUTO) 0.5 10^3/uL (0.0-0.6); ABSOLUTE LYMPHOCYTES (AUTO) 2.4 10^3/uL (0.5-4.7); ABSOLUTE MONOCYTES (AUTO) 0.7 10^3/uL (0.1-1.4); ABSOLUTE NEUT (AUTO) 3.9 10^3/uL (1.7-8.2); BASOPHILS % (AUTO) 0.9 % (0-2); EOSINOPHILS % (AUTO) 6.2 % (0-6); HEMATOCRIT 32.8 % (36.0-47.0); HEMOGLOBIN 10.9 g/dL (12.0-15.5); LYMPHOCYTES % (AUTO) 31.7 % (13-45); MEAN CORPUSCULAR HGB CONC 33.1 g/dL (32.0-36.0); MEAN CORPUSCULAR VOLUME 94 fl (80-97); MONOCYTES % (AUTO) 9.8 % (3-13); PLATELET COUNT 349 10^3/uL (150-450); RED CELL DISTRIBUTION WIDTH 17.2 % (11.5-14.0); SEGMENTED NEUTROPHILS % (AUTO) 51.4 % (42-78); TOTAL CELLS COUNTED % (AUTO) 100 %; WHITE BLOOD COUNT 7.5 10^3/uL (4.0-10.5)
[2019-06-15 12:54] LABS: APPEARANCE,URINE CLEAR; BILIRUBIN,URINE NEGATIVE (NEGATIVE); COLOR,URINE YELLOW; GLUCOSE, URINE NEGATIVE (NEGATIVE); KETONES,URINE NEGATIVE (NEGATIVE); PROTEIN,URINE NEGATIVE (NEGATIVE); URINE SPECIFIC GRAVITY 1.021; UROBILINOGEN,URINE NEGATIVE mg/dL (<2.0)
[2019-06-15 13:09] LABS: ALBUMIN 3.7 g/dL (3.5-5.0); ALKALINE PHOSPHATASE 112 U/L (38-126); ANION GAP 10 (5-19); ASPARTATE AMINO TRANSFERASE 21 U/L (14-36); BILIRUBIN,DIRECT 0.2 mg/dL (0.0-0.4); BILIRUBIN,TOTAL 0.2 mg/dL (0.2-1.3); BLOOD UREA NITROGEN 15 mg/dL (7-20); CALCIUM 9.6 mg/dL (8.4-10.2); CARBON DIOXIDE 27 mmol/L (22-30); CHLORIDE 107 mmol/L (98-107); GLUCOSE 103 mg/dL (75-110); POTASSIUM 3.9 mmol/L (3.6-5.0)
[2019-06-15] MEDS ORDERED: NORMAL SALINE 1000 ML 1,000 ML IV ONE (14:24)
[2019-06-15 14:34] LABS: BACTERIA (WET MOUNT) 4+ BACTERIA SEEN; RBCS (WET MOUNT) 1+ RBCS SEEN; T.VAGINALIS (WET MOUNT) NO TRICHOMONAS SEEN; WBCS (WET MOUNT) 4+ WBCS SEEN; YEAST (WET MOUNT) NO YEAST SEEN
--- NOTE | 2019-06-15 15:18 | RADIOLOGY REPORT (SQ) ---
EXAM DESCRIPTION: CT ABD/PELVIS WITH IV ONLY COMPLETED DATE/TIME: 06/15/2019 3:04 pm REASON FOR STUDY: fall, rib fx, RUQ and side pain COMPARISON: None. TECHNIQUE: CT scan of the abdomen and pelvis performed using helical scanning technique with dynamic intravenous contrast injection. No oral contrast. Images reviewed with lung, soft tissue, and bone windows. Reconstructed coronal and sagittal MPR images reviewed. Delayed images for evaluation of the urinary system also acquired. All images stored on PACS. All CT scanners at this facility use dose modulation, iterative reconstruction, and/or weight based d osing when appropriate to reduce radiation dose to as low as reasonably achievable (ALARA). [facility]: Dose Right [facility]: CareDose [facility]: Dose Right [facility]: Teradose 4D [facility]: Indie Vinos CONTRAST TYPE AND DOSE: contrast/concentration: Isovue 350.00 mg/ml; Total Contrast Delivered: 69.0 ml; Total Saline Delivered: 65.0 ml RENAL FUNCTION: BUN 15, creatinine 0.59 RADIATION DOSE: CT Rad equipment meets quality standard of care and radiation dose reduction techniq ues were employed. CTDIvol: 7.2 - 9.7 mGy. DLP: 875 mGy-cm.. LIMITATIONS: None. FINDINGS: LOWER CHEST: Scattered areas of atelectasis. LIVER: There is fatty infiltration of liver. SPLEEN: The spleen is surgically absent. PANCREAS: No masses. No significant calcifications. No adjacent inflammation or peripancreatic fluid collections. Pancreatic duct not dilated. GALLBLADDER: No identified stones by CT criteria. No inflammatory changes to suggest cholecystitis. ADRENAL GLANDS: No significant masses or asymmetry. RIGHT KIDNEY AND URETER: No solid masses. Small simple cyst. No significant calcifications. No h ydronephrosis or hydroureter. LEFT KIDNEY AND URETER: No solid masses. Small simple cyst. No significant calcifications. No hy dronephrosis or hydroureter. AORTA AND VESSELS: No aneurysm. No dissection. Renal arteries, SMA, celiac without stenosis. RETROPERITONEUM: No retroperitoneal adenopathy, hemorrhage or masses. BOWEL AND PERITONEAL CAVITY: Fairly extensive diverticular change involving the sigmoid colon. There is sigmoid colonic wall thickening with surrounding edema. This most likely represents diverticulit is. Infiltrating tumor cannot be excluded. No free air or focal abscess. APPENDIX: Normal. PELVIS: No mass. No free fluid. Normal bladder. ABDOMINAL WALL: No masses. No hernias. BONES: There are degenerative changes in the lumbar spine. Grade 1-2 anterolisthesis of L5 on S1. N o acute findings. OTHER: No other significant finding. IMPRESSION: 1. Fairly extensive diverticular change involving the sigmoid colon. There is sigmoid c olonic wall thickening with mild surrounding edema. This may represent acute diverticulitis. Infilt rating neoplasm cannot be excluded. 2. No acute posttraumatic changes. TECHNICAL DOCUMENTATION: JOB ID: [id number] Quality ID # [id number]: Final reports with documentation of one or more dose reduction techniques (e.g., Au tomated exposure control, adjustment of the mA and/or kV according to patient size, use of iterative reconstruction technique) 2010 [employer]- All Rights Reserved Reading location - IP/workstation name: [email or web address]
[2019-06-15] MEDS ORDERED: NORMAL SALINE 1000 ML 150 ML IV PRN ×2 (16:29→18:23)
[2019-06-15] MEDS ORDERED: NICOTINE 14 MG/24 HR PATCH.TD24 TD ONE (18:30)
[2019-06-15] MEDS ORDERED: METRONIDAZOLE 500 MG/NS RTU 500 MG/100 ML RTUPB IV ONE (18:47)
[2019-06-15] MEDS ORDERED: POLYETHYLENE GLYCOL 3350 POWDER 17 GM/1 PACKET PO ONE (18:49)
[2019-06-15] MEDS: CIPROFLOXACIN 400 MG/D5W RTU 400 MG/200 ML RTUPB IV SCH (22:19)
--- NOTE | 2019-06-16 00:11 | ER Document Report ---
ED General - General Chief Complaint: Abdominal Pain Stated Complaint: ABDOMINAL PAIN/NAUSEA/VAGINAL PROBLEM Time Seen by Provider: 06/15/19 11:33 Primary Care Provider: [facility] [Primary Care Provider] - Follow up as needed Mode of Arrival: Ambulatory TRAVEL OUTSIDE OF THE [place] 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 She states that she struggled with constipation for some time. She had a colonoscopy approximately 1 year ago with Iron. She states that the GI specialist who did her colonoscopy could not get a sufficient picture because he could not pass the tube. She states that she was supposed to have another colonoscopy done but she decided not to get it done. She smokes. She denies any blood in her stool. She denies any nausea or vomiting. She states that she started to notice this bowel draining vaginal discharge about a week ago. She went to see her primary care and they did a ThinPrep. They called her today because she had E. coli growing on her prep. They wanted her to come to the emergency department for further evaluation. She denies any fevers or chills, chest pain or shortness of breath. She denies any other complaints currently. - Related Data Allergies/Adverse Reactions: Sulfa (Sulfonamide Antibiotics) Allergy (Verified 06/15/19 11:31) Home Medications: lyrica, trazadone, effexor xr, lipitor, omeprazole, flonase, glucotrol Past Medical History - General Information source: Patient - Social History Smoking Status: Current Every Day Smoker Chew tobacco use (# tins/day): No Frequency of alcohol use: None Drug Abuse: None Family History: Reviewed & Not Pertinent Patient has suicidal ideation: No Patient has homicidal ideation: No - Past Medical History Cardiac Medical History: Reports: Hx Hypercholesterolemia, Hx Hypertension Neurological Medical History: Reports: Hx Migraine Endocrine Medical History: Reports: Hx Diabetes Mellitus Type 2 Renal/ Medical History: Denies: Hx Peritoneal Dialysis GI Medical History: Reports: Hx Gastroesophageal Reflux Disease Psychiatric Medical History: Reports: Hx Depression Past Surgical History: Reports: Hx Abdominal Surgery - spleenectomy, Hx Hysterectomy - Immunizations Hx Diphtheria, Pertussis, Tetanus Vaccination: - unknown Review of Systems - Review of Systems Constitutional: denies: Chills, Fever EENT: No symptoms reported Cardiovascular: denies: Chest pain, Palpitations Respiratory: denies: Cough, Hurts to breathe, Short of breath, Sputum, Stridor Gastrointestinal: Abdomen distended, Abdominal pain, Constipation. denies: Diarrhea, Nausea, Vomiting Genitourinary: No symptoms reported Female Genitourinary: See HPI, Vaginal discharge, Vaginal odor Musculoskeletal: No symptoms reported Skin: No symptoms reported Hematologic/Lymphatic: No symptoms reported Neurological/Psychological: No symptoms reported -: Yes All other systems reviewed and negative Physical Exam - Vital signs Vitals: Temp Pulse Resp BP Pulse Ox 97.8 F 90 16 111/84 96 06/15/19 11:25 06/15/19 11:25 06/15/19 11:25 06/15/19 11:25 06/15/19 11:25 Interpretation: Normal - General General appearance: Appears well, Alert - HEENT Head: Normocephalic, Atraumatic Eyes: Normal Pupils: PERRL - Respiratory Respiratory status: No respiratory distress Chest status: Nontender Breath sounds: Normal Chest palpation: Normal - Cardiovascular Rhythm: Regular Heart sounds: Normal auscultation Murmur: No - Abdominal Distension: Distended - There is diffuse distention to the abdomen. It is tender to palpation throughout but without any focal tenderness to palpation. Patient is not guarding and does not have rebound. Negative Huff's and negative McBurney's point. Tenderness: Tender Organomegaly: No organomegaly - Rectal Tenderness: No Stool: Heme negative Hemorrhoids: External - Genitourinary External exam: Normal Notes: Pelvic exam with wet mount performed with RN bedside. Noted vaginal atrophy. Speculum exam reveals a thin yellow-brownish discharge but not grossly feculent appearance. Inspection of the vaginal canal does not illustrate any trauma or evidence of large fistula that was visualized. Bimanual exam reveals no katrina mass. There is no vaginal bleeding - Back Back: Normal, Nontender - Neurological Neuro grossly intact: Yes Cognition: Normal Orientation: AAOx4 [place] Coma Scale Eye Opening: Spontaneous Violeta Coma Scale Verbal: Oriented Violeta Coma Scale Motor: Obeys Commands [place] Coma Scale Total: 15 Speech: Normal Motor strength normal: LUE, RUE, LLE, RLE Sensory: Normal - Psychological Associated symptoms: Normal affect, Normal mood - Skin Skin Temperature: Warm Skin Moisture: Dry Skin Color: Normal Course - Re-evaluation Re-evalutation: Abdomen/Pelvis CT 06/15/19 14:24 IMPRESSION: 1. Fairly extensive diverticular change involving the sigmoid colon. There is sigmoid colonic wall thickening with mild surrounding edema. This may represent acute diverticulitis. Infiltrating neoplasm cannot be excluded. 2. No acute posttraumatic changes. Discussed case with Dr. Rodriguez, ER attending. He agrees that surgery and BUSINESS CHANGE MANAGER should be consulted and admission discussed with them. Spoke with Dr. Lawson, surgeon on-call. He will come see the patient. Spoke with Dr. León, TRIMMING MACHINE SET UP OPERATOR fondant puff maker. She states that she and her partner do not do fistula repairs and/or Guynn Alondra here. She suggests transfer out. She states she will call Dr. Lawson. She called me back after speaking with Dr. Lawson and he agreed that since she will why and did not have gynecologic or BUSINESS CHANGE MANAGER urology that patient should be transferred out. Updated patient about the plan and she agrees. Attempted to transfer patient to [facility] per her initial request. There are no beds available. Spoke with [facility] transfer center. They will obtain the patient's imaging and discussed with her general surgeon. Charles Mix back from [facility] the general surgeon did look at the imaging but thinks that this patient should go to the hospitalist service. Spoke with Dr. Juliocesar Gustafson, hospitalist at [facility]. He agrees and accepts patient onto his service. He would like to empirically treat her for diverticulitis with Cipro and Flagyl. He would also like for her to have MiraLAX. Provided transfer center states that there will call back with bed as soon as possible.. Impression: Abnormal vaginal discharge concerning for a conduit between bowel and vaginal vault. CT was obtained and there is concern for diverticulitis versus other mass in the sigmoid colon. Patient treated empirically with antibiotics and will be transferred out for further and higher level of care patient agrees with the plan. - Vital Signs Vital signs: Temp Pulse Resp BP Pulse Ox 97.5 F 87 16 132/91 H 100 06/15/19 19:56 06/15/19 19:56 06/15/19 19:56 06/15/19 19:56 06/15/19 19:56 - Laboratory Result Diagrams: 06/15/19 12:29 06/15/19 12:29 Laboratory results interpreted by me: 06/15/19 06/15/19 12:29 12:29 RBC 3.50 L Hgb 10.9 L Hct 32.8 L RDW 17.2 H Eos % (Auto) 6.2 H Leukocyte Esterase Rfl MODERATE H - Diagnostic Test Radiology reviewed: Image reviewed, Reports reviewed Discharge - Discharge Clinical Impression: Vaginal discharge, Abnormal CT of the abdomen, Abdominal pain, Abdominal distension Condition: Stable Disposition: [facility] Referrals: [facility] [Primary Care [facility]] - Follow up as needed
[2019-06-16] MEDS: METRONIDAZOLE 500 MG/NS RTU 500 MG/100 ML RTUPB IV SCH ×3 (02:11→16:22)
[2019-06-16] MEDS ORDERED: ACETAMINOPHEN 325 MG TABLET PO ONE ×2 (06:51→12:57)
[2019-06-16] MEDS ORDERED: VENLAFAXINE HCL 75 MG TABLET PO ONE ×2 (06:51→08:15)
--- NOTE | 2019-06-16 08:13 | ER Document Report ---
Doctor's Note Notes: 06/16/19 08:12 Report received from MADELEINE Lora. Introduced self to patient. She is resting comfortably laughing happy no distress. Reminded she is n.p.o. She verbalized understanding plan of care for transfer. No ETA available at this time no bed assigned at [facility]. 06/16/19 16:58 the community recreation coordinator contacted [facility] several times. They do not think he will have a bed until tomorrow. Patient was given a diet. Will become n.p.o. at midnight in anticipation of transfer. She is comfortable no complaints of pain. 06/16/19 18:56 Patient continues to rest quietly. Denies pain. Waiting for a bed at [facility]. She was instructed on n.p.o. after midnight. She verbalized understand all instructions. 06/16/19 20:21 Report given to MADELEINE Lora
[2019-06-16] MEDS ORDERED: VENLAFAXINE HCL 75 MG CAP.SR.24H PO ONE ×2 (09:55→14:00)
[2019-06-16] MEDS: CIPROFLOXACIN 400 MG/D5W RTU 400 MG/200 ML RTUPB IV SCH ×2 (10:54→21:11)
[2019-06-16 11:13] VITALS: BP 118/73
[2019-06-16] MEDS ORDERED: PROMETHAZINE HCL 25 MG TABLET PO ONE (12:57)
== END 2019-06-17 02:27 | disposition short-term general hospital (02) ==
LOC: ER 11:19
DX: N89.8 Other specified noninflammatory disorders of vagina (principal); R10.9 Unspecified abdominal pain; R14.0 Abdominal distension (gaseous); R11.0 Nausea; F17.200 Nicotine dependence, unspecified, uncomplicated; E11.9 Type 2 diabetes mellitus without complications; E78.00 Pure hypercholesterolemia, unspecified; I10 Essential (primary) hypertension; R93.5 Abnormal findings on diagnostic imaging of other abdominal regions, including retroperitoneum; Z90.710 Acquired absence of both cervix and uterus; Z88.2 Allergy status to sulfonamides
CPT/HCPCS: 99285; 96361; 96365; 96366; 96367; 36415; 87040; 87045; 87086; 89055; 87205; 87210; 82962; 85025; 87088; 80053; 81001; 87186; 74177; J3490 ×2; J7030; J0744

== ENCOUNTER → 2020-03-30 | Outpatient (CLI) | payer OTHER ==
[2020-03-30 12:36] LABS: ABSOLUTE EOSINOPHILS # (AUTO) 0.2 10^3/uL (0.0-0.6); ABSOLUTE LYMPHOCYTES (AUTO) 2.4 10^3/uL (0.5-4.7); ABSOLUTE MONOCYTES (AUTO) 0.7 10^3/uL (0.1-1.4); ABSOLUTE NEUT (AUTO) 3.6 10^3/uL (1.7-8.2); BASOPHILS % (AUTO) 0.7 % (0-2); EOSINOPHILS % (AUTO) 3.4 % (0-6); HEMATOCRIT 40.3 % (36.0-47.0); HEMOGLOBIN 13.4 g/dL (12.0-15.5); LYMPHOCYTES % (AUTO) 34.8 % (13-45); MEAN CORPUSCULAR HEMOGLOBIN 32.3 pg (27.0-33.4); MEAN CORPUSCULAR HGB CONC 33.3 g/dL (32.0-36.0); MEAN CORPUSCULAR VOLUME 97 fl (80-97); MONOCYTES % (AUTO) 9.7 % (3-13); PLATELET COUNT 285 10^3/uL (150-450); RED BLOOD COUNT 4.15 10^6/uL (3.72-5.28); RED CELL DISTRIBUTION WIDTH 14.9 % (11.5-14.0); SEGMENTED NEUTROPHILS % (AUTO) 51.4 % (42-78); TOTAL CELLS COUNTED % (AUTO) 100 %
[2020-03-30 12:52] LABS: ALBUMIN 4.2 g/dL (3.5-5.0); ALKALINE PHOSPHATASE 99 U/L (38-126); ANION GAP 8 (5-19); ASPARTATE AMINO TRANSFERASE 21 U/L (14-36); BILIRUBIN,DIRECT 0.1 mg/dL (0.0-0.4); BILIRUBIN,TOTAL 0.5 mg/dL (0.2-1.3); BLOOD UREA NITROGEN 24 mg/dL (7-20); CALCIUM 9.5 mg/dL (8.4-10.2); CARBON DIOXIDE 30 mmol/L (22-30); CHLORIDE 104 mmol/L (98-107); CHOLESTEROL 259.51 mg/dL (0-200); GLUCOSE 92 mg/dL (75-110); POTASSIUM 4.3 mmol/L (3.6-5.0); TOTAL PROTEIN 7.8 g/dL (6.3-8.2); TRIGLYCERIDES 328 mg/dL (<150)
[2020-03-30 13:03] LABS: DIRECT LDL 151 mg/dL (<100)
[2020-03-30 13:21] LABS: VLDL CHOLESTEROL 65.6 mg/dL (10-31)
== END ==
LOC: OD 11:15
PROVIDERS: ATTEND Internal Medicine
DX: E11.9 Type 2 diabetes mellitus without complications (principal); E78.5 Hyperlipidemia, unspecified; R53.83 Other fatigue
CPT/HCPCS: 36415; 80053; 80061; 83036; 84443; 85025